=== PATIENT | female | born 1955 | race Caucasian/White ===

== ENCOUNTER → 2017-03-07 | Outpatient (CLI) | payer OTHER | LOC: M WHC 09:05 | DX: Z12.31 Encounter for screening mammogram for malignant neoplasm of breast (principal); Z78.0 Asymptomatic menopausal state; R92.8 Other abnormal and inconclusive findings on diagnostic imaging of breast | CPT/HCPCS: 77067 ==

== ENCOUNTER → 2018-05-01 | Outpatient (REF) | payer OTHER ==
--- NOTE | 2018-05-01 12:35 | REPMRS ---
Patient History The patient states she had a clinical breast exam in 04/2018. Family history of breast cancer at age 50 or over in paternal aunt, breast cancer at age 50 or over in paternal aunt, breast cancer at age 50 or over in paternal aunt, colorectal cancer at age 48 in brother, ovarian cancer in maternal grandmother. 3D TOMOSYNTHESIS WAS PERFORMED. Digital Woman Screen Mammo: May 01, 2018 - Exam #: [id number] Bilateral CC and MLO view(s) were taken. Technologist: Elvi Lepe, Technologist Prior study comparison: March 07, 2017, digital woman screen mammo performed at [facility]. January 28, 2016, digital woman screen mammo performed at [facility]. FINDINGS: The breast tissue is heterogeneously dense. This may lower the sensitivity of mammography. There has been no change in the appearance of the mammogram from the prior studies. There is a moderate amount of residual fibroglandular tissue which is fairly symmetric. There is no interval development of dominant mass, areas of architectural distortion, or clustered microcalcification typical of malignancy. Assessment: BI-RADS/ACR category 1 mammogram. Negative Mammogram. Recommendation Routine screening mammogram in 1 year (for women over age 40). This mammogram was interpreted with the aid of an FDA-approved computer-aided dectection system. Electronically Signed By: Sean Bettencourt MD 05/01/18 [id number]
== END ==
LOC: M WHC 09:38 → M WUC 09:38 → EDSTATUS 10:00
PROVIDERS: ATTEND Nurse Practitioner Family
DX: Z12.31 Encounter for screening mammogram for malignant neoplasm of breast (principal); Z80.3 Family history of malignant neoplasm of breast; Z80.0 Family history of malignant neoplasm of digestive organs; Z80.41 Family history of malignant neoplasm of ovary

== ENCOUNTER → 2019-07-16 | Outpatient (REF) | payer OTHER | LOC: M SFHCWAGY 17:31 | PROVIDERS: ATTEND Nurse Practitioner Family | DX: Z12.4 Encounter for screening for malignant neoplasm of cervix (principal); Z01.419 Encounter for gynecological examination (general) (routine) without abnormal findings ==

== ENCOUNTER → 2019-07-16 | Outpatient (CLI) | payer OTHER ==
--- NOTE | 2019-07-16 14:27 | REPMRS ---
Patient History The patient states she had a clinical breast exam in July 2019. Family history of breast cancer at age 50 or over in paternal aunt, breast cancer at age 50 or over in paternal aunt, breast cancer at age 50 or over in paternal aunt, colorectal cancer at age 48 in brother, ovarian cancer in maternal grandmother. 3D TOMOSYNTHESIS WAS PERFORMED. [facility] lifetime risk for breast cancer is 9.1%. EULALIO Cm Digital Woman Screen Mammo: July 16, 2019 - Exam #: [id number] Bilateral CC and MLO view(s) were taken. Technologist: Billie Medrano, Technologist Prior study comparison: May 01, 2018, bilateral digital woman screen mammo performed at [facility]. March 07, 2017, digital woman screen mammo performed at [facility]. FINDINGS: The breast tissue is heterogeneously dense. This may lower the sensitivity of mammography. There has been no change in the appearance of the mammogram from the prior studies. There is a moderate amount of residual fibroglandular tissue which is fairly symmetric. There is no interval development of dominant mass, areas of architectural distortion, or clustered microcalcification typical of malignancy. Assessment: BI-RADS/ACR category 1 mammogram. Negative Mammogram. Recommendation Routine screening mammogram in 1 year (for women over age 40). This mammogram was interpreted with the aid of an FDA-approved computer-aided dectection system. Electronically Signed By: Sean Bettencourt MD 07/16/19 [id number]
== END ==
LOC: M WHC 10:27
PROVIDERS: ATTEND Nurse Practitioner Family
DX: Z12.31 Encounter for screening mammogram for malignant neoplasm of breast (principal); Z80.3 Family history of malignant neoplasm of breast; Z80.0 Family history of malignant neoplasm of digestive organs

== ENCOUNTER → 2020-07-19 | Outpatient (CLI) | payer OTHER ==
--- NOTE | 2020-07-19 14:59 | REPMRS ---
Patient History The patient states she had a clinical breast exam in July 2020. Family history of breast cancer at age 50 or over in paternal aunt, breast cancer at age 50 or over in paternal aunt, breast cancer at age 50 or over in paternal aunt, colorectal cancer at age 48 in brother, ovarian cancer in maternal grandmother. Tomosynthesis is performed. Volpara breast density is c. Tyrer-zick lifetime risk of breast cancer 8.7%. Patient states no breast complaints today. Patient has signed MRS History Sheet. Digital Woman Screen Mammo: July 19, 2020 - Exam #: [id number] Bilateral CC and MLO view(s) were taken. Technologist: RT Lyndsey Prior study comparison: July 16, 2019, bilateral digital woman screen mammo performed at [facility]. May 01, 2018, bilateral digital woman screen mammo performed at [facility]. FINDINGS: The breast tissue is heterogeneously dense. This may lower the sensitivity of mammography. There has been no change in the appearance of the mammogram from the prior studies. There is a moderate amount of residual fibroglandular tissue which is fairly symmetric. There is no interval development of dominant mass, areas of architectural distortion, or clustered microcalcification typical of malignancy. Assessment: BI-RADS/ACR category 1 mammogram. Negative Mammogram. Recommendation Routine screening mammogram in 1 year (for women over age 40). This mammogram was interpreted with the aid of an FDA-approved computer-aided dectection system. Electronically Signed By: Sean Bettencourt MD 07/19/20 [id number]
== END ==
LOC: M WHC 13:48
PROVIDERS: ATTEND Nurse Practitioner Women's Health
DX: Z12.31 Encounter for screening mammogram for malignant neoplasm of breast (principal)